=== PATIENT | male | born 1990 | race Caucasian/White ===

== ENCOUNTER 2018-08-03 20:36 | Emergency (ER) | payer OTHER ==
[~2018-08-03] VITALS: Ht 177.8 cm; Wt 79.4 kg
[2018-08-03 20:41] VITALS: BP 142/85
[2018-08-03] MEDS ORDERED: MORPHINE SULFAT15 M3 PO (22:11)
== END 2018-08-03 22:11 | disposition home or self-care (01) ==
LOC: ER 20:36
DX: S92.252A Displaced fracture of navicular [scaphoid] of left foot, initial encounter for closed fracture (principal); V87.8XXA Person injured in other specified noncollision transport accidents involving motor vehicle (traffic), initial encounter; Y93.39 Activity, other involving climbing, rappelling and jumping off; Y92.89 Other specified places as the place of occurrence of the external cause; Y99.8 Other external cause status